=== PATIENT | male | born 1985 | race Hispanic/Latino ===

== ENCOUNTER 2023-06-09 19:36 | Inpatient (IN) | payer OTHER ==
[~2023-06-09] VITALS: Ht 165.1 cm; Wt 58.5 kg
[2023-06-09 19:59] LABS: HEMATOCRIT 46.8 % (42-54); MEAN CORPUSCULAR HEMOGLOBIN 28.8 pg (27.0-33.0); MEAN CORPUSCULAR HGB CONC 32.9 g/dL (32.0-36.0); MEAN CORPUSCULAR VOLUME 87.5 fL (79-99); RED BLOOD CELL COUNT(AUTO) 5.35 MIL/uL (4.50-6.20); RED CELL DISTRIBUTION WIDTH 13.2 % (11.0-15.5); WHITE BLOOD COUNT (AUTO) 9.1 K/uL (4.8-10.8)
[2023-06-09] MEDS ORDERED: NITROGLYCERIN 0.4 MG SL TAB SL PRN (20:00)
[2023-06-09] MEDS ORDERED: ASPIRIN 325MG TAB PO ONE (20:00)
[2023-06-09 20:10] LABS: POTASSIUM 3.6 mmol/L (3.5-5.1)
[2023-06-09 20:30] LABS: AMPHET/METH SCREEN,URINE NEGATIVE (NEGATIVE); BARBITURATE SCREEN, URINE NEGATIVE (NEGATIVE); BENZODIAZEPINES SCREEN,URINE NEGATIVE (NEGATIVE); CANNABINOID SCREEN,URINE NEGATIVE (NEGATIVE); COCAINE SCREEN,URINE NEGATIVE (NEGATIVE); OPIATE SCREEN,URINE NEGATIVE (NEGATIVE); PHENCYCLIDINE SCREEN,URINE NEGATIVE (NEGATIVE)
[2023-06-09] MEDS ORDERED: LACTATED RINGERS 1000ML 1,000 ML IV SCH (21:00)
[2023-06-09] MEDS ORDERED: MORPHINE 2 MG SYG IV PRN (21:00)
[2023-06-09] MEDS ORDERED: ACETAMINOPHEN 325 MG TAB PO PRN (21:00)
[2023-06-09] MEDS ORDERED: MORPHINE 4 MG SYG IV PRN (21:00)
[2023-06-09] MEDS ORDERED: POTASSIUM CHLORIDE 10% ELIXIR 20 MEQ/15 ML UDCUP PO PRN (21:00)
[2023-06-09] MEDS ORDERED: POTASSIUM CHLORIDE 20MEQ/100ML 100 ML IV PRN ×2 (21:00)
[2023-06-09] MEDS ORDERED: ONDANSETRON 4MG INJ IV PRN (21:00)
[2023-06-09] MEDS ORDERED: MAGNESIUM 2GM PREMIX 50ML 50 ML IV PRN (21:00)
[2023-06-09] MEDS: NITROGLYCERIN 1GM OINT 1 INCH/1GM TD SCH (21:55)
[2023-06-09] MEDS: FAMOTIDINE 20MG VIAL IV SCH (21:55)
[2023-06-09] MEDS: SOTALOL HCL 80 MG TABLET PO SCH (21:55)
[2023-06-10] VITALS (7 sets, daily range): BP systolic 94–118; BP diastolic 56–73; PULSE 54–75; RESP 16–20; O2SAT 99–100
[2023-06-10 04:05] LABS: BASOPHILS # (AUTO) 0.06 K/uL (0.00-0.20); BASOPHILS % (AUTO) 0.8 % (0.0-5.0); EOSINOPHILS # (AUTO) 0.31 K/uL (0.00-0.70); EOSINOPHILS % (AUTO) 3.9 % (0.0-8.0); HEMATOCRIT 42.7 % (42-54); IMMATURE GRANULOCYTE ABSOLUTE 0.03 K/uL (0-1); LYMPHOCYTES # (AUTO) 2.7 K/uL (1.0-4.8); LYMPHOCYTES % (AUTO) 34.1 % (21.0-51.0); MEAN CORPUSCULAR HEMOGLOBIN 28.7 pg (27.0-33.0); MEAN CORPUSCULAR HGB CONC 32.6 g/dL (32.0-36.0); MEAN CORPUSCULAR VOLUME 88.2 fL (79-99); MONOCYTES # (AUTO) 0.6 K/uL (0.1-1.0); MONOCYTES % (AUTO) 7.1 % (3.0-13.0); NEUTROPHILS # (AUTO) 4.3 K/uL (1.8-7.7); NEUTROPHILS % (AUTO) 53.7 % (40.0-77.0); PLATELET COUNT (AUTO) 244 K/uL (130-400); RED BLOOD CELL COUNT(AUTO) 4.84 MIL/uL (4.50-6.20); RED CELL DISTRIBUTION WIDTH 13.1 % (11.0-15.5); WHITE BLOOD COUNT (AUTO) 7.9 K/uL (4.8-10.8)
[2023-06-10 04:25] LABS: INR 0.96 (0.85-1.15); PARTIAL THROMBOPLASTIN TIME 24.5 SEC (26.3-35.5); PROTHROMBIN TIME 10.4 SEC (9.6-11.6)
[2023-06-10 04:29] LABS: MAGNESIUM 1.9 mg/dL (1.80-2.40); PHOSPHORUS 3.8 mg/dL (2.5-4.9); POTASSIUM 3.7 mmol/L (3.5-5.1); THYROID STIMULATING HORMONE 3.95 uIU/mL (0.36-3.74)
[2023-06-10] MEDS: NITROGLYCERIN 1GM OINT 1 INCH/1GM TD SCH (05:33)
[2023-06-10] MEDS: ACETAMINOPHEN 325 MG TAB PO PRN (07:37)
[2023-06-10] MEDS: KCL 20 MEQ ERTAB PO PRN ×2 (07:38→09:14)
[2023-06-10] MEDS ORDERED: ASPI-1005 PO (07:47)
[2023-06-10] MEDS: FAMOTIDINE 20MG VIAL IV SCH ×2 (09:13→20:24)
[2023-06-10] MEDS: SOTALOL HCL 80 MG TABLET PO SCH ×2 (09:13→20:24)
[2023-06-10] MEDS: ASPIRIN 81MG CHEW TAB PO SCH (09:13)
[2023-06-11] VITALS (8 sets, daily range): BP systolic 97–107; BP diastolic 53–71; PULSE 56–62; RESP 16–20; O2SAT 94–100
[2023-06-11 04:23] LABS: HEMATOCRIT 45.4 % (42-54); MEAN CORPUSCULAR HEMOGLOBIN 28.6 pg (27.0-33.0); MEAN CORPUSCULAR HGB CONC 32.8 g/dL (32.0-36.0); MEAN CORPUSCULAR VOLUME 87.1 fL (79-99); RED BLOOD CELL COUNT(AUTO) 5.21 MIL/uL (4.50-6.20); RED CELL DISTRIBUTION WIDTH 13.2 % (11.0-15.5); WHITE BLOOD COUNT (AUTO) 7.1 K/uL (4.8-10.8)
[2023-06-11 04:56] LABS: ALBUMIN 3.8 g/dL (3.5-5.0); BILIRUBIN,TOTAL 0.5 mg/dL (0.2-1.0); CREATININE 1.3 mg/dL (0.5-1.5); MAGNESIUM 2.1 mg/dL (1.80-2.40)
[2023-06-11] MEDS: SOTALOL HCL 80 MG TABLET PO SCH (10:05)
[2023-06-11] MEDS: FAMOTIDINE 20MG VIAL IV SCH ×2 (10:05→20:08)
[2023-06-11] MEDS: ASPIRIN 81MG CHEW TAB PO SCH (10:05)
[2023-06-11] MEDS: ACETAMINOPHEN 325 MG TAB PO PRN (18:27)
[2023-06-11] MEDS: FLECAINIDE ACETATE 100 MG TABLET PO SCH (20:08)
[2023-06-12] VITALS: BP 90/56; PULSE 60; RESP 18
[2023-06-12 03:25] VITALS: BP 94/58; PULSE 61; RESP 18
[2023-06-12 03:42] LABS: HEMATOCRIT 44.7 % (42-54); MEAN CORPUSCULAR HEMOGLOBIN 28.7 pg (27.0-33.0); MEAN CORPUSCULAR HGB CONC 32.4 g/dL (32.0-36.0); MEAN CORPUSCULAR VOLUME 88.3 fL (79-99); RED BLOOD CELL COUNT(AUTO) 5.06 MIL/uL (4.50-6.20); RED CELL DISTRIBUTION WIDTH 12.9 % (11.0-15.5); WHITE BLOOD COUNT (AUTO) 7.9 K/uL (4.8-10.8)
[2023-06-12 03:58] LABS: ALBUMIN 3.8 g/dL (3.5-5.0); BILIRUBIN,TOTAL 0.4 mg/dL (0.2-1.0); CREATININE 1.2 mg/dL (0.5-1.5); POTASSIUM 3.8 mmol/L (3.5-5.1)
[2023-06-12 07:30] VITALS: BP 103/58; PULSE 61; RESP 20
[2023-06-12 08:00] VITALS: O2SAT 98
[2023-06-12] MEDS: FLECAINIDE ACETATE 100 MG TABLET PO SCH ×2 (08:49→18:39)
[2023-06-12] MEDS: ASPIRIN 81MG CHEW TAB PO SCH (08:49)
[2023-06-12] MEDS: FAMOTIDINE 20MG VIAL IV SCH (08:49)
[2023-06-12 11:30] VITALS: BP 100/57; PULSE 77; RESP 20
[2023-06-12 15:40] VITALS: BP 96/60; PULSE 65; RESP 20
== END 2023-06-12 18:40 | disposition home or self-care (01) | DRG 313 ==
LOC: EDH 19:36 → EDHIP 19:37 → 2AH 06-10 02:50
PROVIDERS: ADMIT Internal Medicine; ATTEND Internal Medicine
DX: R07.89 Other chest pain (principal); I45.6 Pre-excitation syndrome; R00.2 Palpitations; F17.210 Nicotine dependence, cigarettes, uncomplicated; Z75.3 Unavailability and inaccessibility of health-care facilities; Z79.82 Long term (current) use of aspirin
CPT/HCPCS: 36415; 71045; 80048; 80053; 80305; 82550; 83735; 83880; 84100; 84443; 84484; 85025; 85027; 85610; 85730; 86850; 86900; 86901; 93005; 93306; G0378; J3490; J7120

== ENCOUNTER 2023-07-23 09:05 | Day surgery (SDC) | payer OTHER ==
[2023-07-19 14:51] LABS: BASOPHILS # (AUTO) 0.07 K/uL (0.00-0.20); BASOPHILS % (AUTO) 0.9 % (0.0-5.0); EOSINOPHILS # (AUTO) 0.17 K/uL (0.00-0.70); EOSINOPHILS % (AUTO) 2.2 % (0.0-8.0); HEMATOCRIT 45.1 % (42-54); IMMATURE GRANULOCYTE ABSOLUTE 0.02 K/uL (0-1); LYMPHOCYTES # (AUTO) 2.2 K/uL (1.0-4.8); LYMPHOCYTES % (AUTO) 28.5 % (21.0-51.0); MEAN CORPUSCULAR HEMOGLOBIN 28.5 pg (27.0-33.0); MEAN CORPUSCULAR VOLUME 86.4 fL (79-99); MONOCYTES # (AUTO) 0.5 K/uL (0.1-1.0); NEUTROPHILS # (AUTO) 4.9 K/uL (1.8-7.7); NEUTROPHILS % (AUTO) 62.1 % (40.0-77.0); PLATELET COUNT (AUTO) 310 K/uL (130-400); RED BLOOD CELL COUNT(AUTO) 5.22 MIL/uL (4.50-6.20); RED CELL DISTRIBUTION WIDTH 13.2 % (11.0-15.5); WHITE BLOOD COUNT (AUTO) 7.8 K/uL (4.8-10.8)
[2023-07-19 14:59] LABS: POTASSIUM 4.6 mmol/L (3.5-5.1)
[2023-07-19 15:03] LABS: INR < 0.93 (0.85-1.15); PROTHROMBIN TIME 10.6 SEC (9.6-11.6)
[2023-07-19 15:04] LABS: PARTIAL THROMBOPLASTIN TIME 25.9 SEC (26.3-35.5)
[2023-07-19 15:24] VITALS: BP 109/70; PULSE 65; RESP 18
[2023-07-23] VITALS (19 sets, daily range): BP systolic 104–122; BP diastolic 62–75; PULSE 15–91; RESP 12–18
[~2023-07-23] VITALS: Ht 170.2 cm; Wt 61.5 kg
[~2023-07-23 09:05] MED LIST: ASPI-1005 PO; FLEC50TA3 PO
[2023-07-23] MEDS ORDERED: 0.9%NACL 1000ML 1,000 ML IV ONE (09:24)
[2023-07-23] MEDS ORDERED: HEPARIN 10,000 UNIT/10ML (1,000 UNIT/ML) VIAL ONE ×2 (12:29→15:12)
[2023-07-23] MEDS ORDERED: LIDOCAINE HCL 400MG/20ML VIAL ONE ×2 (12:29→12:53)
[2023-07-23] MEDS ORDERED: MEPERIDINE-PF 25 MG/ML SYG ONE ×4 (12:52→14:50)
[2023-07-23] MEDS ORDERED: MIDAZOLAM HCL 1 MG/ML 2ML VIAL ONE ×5 (12:53→14:55)
[2023-07-23] MEDS ORDERED: DiphenhydrAMINE HCL 50 MG/ML VIAL ONE (13:06)
[2023-07-23] MEDS ORDERED: KETAMINE HCL 100 MG/ML 5ML VIAL IJ ONE (14:54)
[2023-07-23] MEDS ORDERED: PROPOFOL 1000 MG/100 ML 0 ML IV ONE (14:55)
[2023-07-23] MEDS ORDERED: LIDOCAINE PF 100MG/5ML (2%) SYRINGE 5ML ONE (14:55)
[2023-07-23] MEDS ORDERED: ATROPINE 1MG SYG IVP ONE (15:15)
[2023-07-23] MEDS ORDERED: EPHEDRINE SULFATE 50 MG/ML AMPULE ONE (15:16)
[2023-07-23] MEDS ORDERED: ISOPROTERENOL HCL 0.2 MG/ML AMP/VIAL/BAG ONE (15:29)
[2023-07-23] MEDS ORDERED: MIDAZOLAM HCL 5 MG/ML 2ML VIAL IV ONE (15:46)
[2023-07-23] MEDS ORDERED: ASPI-1026 PO (16:43)
== END 2023-07-23 20:05 | disposition home or self-care (01) ==
LOC: DAH 09:05
PROVIDERS: ATTEND Internal Medicine Cardiovascular Disease
DX: I45.6 Pre-excitation syndrome (principal); F17.200 Nicotine dependence, unspecified, uncomplicated; Z79.01 Long term (current) use of anticoagulants; Z79.899 Other long term (current) drug therapy; Z98.890 Other specified postprocedural states; Z79.82 Long term (current) use of aspirin; Z72.89 Other problems related to lifestyle
CPT/HCPCS: 80048; 85025; 85610; 85730; 36415; 93005; 93653; 93623; 93462; 93662; C1894 ×6; C1732 ×2; C1730 ×3; C1893; A4215 ×2; A4649 ×2; J1200; J3490 ×5; J7030; J1644 ×3; J2250 ×5; J2175 ×3; A4222; A4663; A4216; A4606; A4223 ×3; A4221; 99156; 99157; J0461; J2001; J2704